=== PATIENT | female | born 1985 | race Two or more races ===

== ENCOUNTER 2017-12-16 18:37 | Emergency (ER) | payer MEDICAID, OTHER ==
[~2017-12-16] VITALS: Ht 170.2 cm; Wt 82.0 kg
[2017-12-17] MEDS ORDERED: AZITHROMYCIN 500 MG TABLET PO SCH (00:45)
[2017-12-17] MEDS ORDERED: CEFTRIAXONE SODIUM 250 MG/VIAL IM ONE (00:45)
[2017-12-17 00:59] LABS: BASOPHILS % 0.2 % (0.0-2.0); EOSINOPHILS % 1.1 % (0.0-5.0); HEMATOCRIT. 36.1 % (36.0-48.0); HEMOGLOBIN. 12.2 g/dL (12.0-16.0); LYMPHOCYTES % 31.9 % (20.0-50.0); MEAN CORPUSCULAR HEMOGLOBIN 30.4 pg (28.0-32.0); MEAN CORPUSCULAR VOLUME 89.8 fL (81.0-99.0); MEAN PLATELET VOLUME 7.3 fl (7.4-10.4); MONOCYTES % 8.2 % (2.0-8.0); NEUTROPHILS % 58.6 % (40.0-76.0); PLATELET 354 x1000/uL (130-400); RED BLOOD CELL COUNT 4.02 mill/uL (4.2-5.4); RED CELL DISTRIBUTION WIDTH 14.1 % (11.6-14.6)
[2017-12-17] MEDS ORDERED: AZITHROMYCIN 500 MG TABLET PO NR (01:00)
[2017-12-17 01:05] LABS: CHLORIDE 108 mEq/L (98-107)
[2017-12-17 01:09] LABS: ETHANOL BLOOD < 10 mg/dL
[2017-12-17 02:29] LABS: CLARITY URINE CLOUDY (CLEAR); COLOR URINE YELLOW (YELLOW); KETONES URINE NEGATIVE (NEGATIVE); LEUKOCYTE ESTERASE URINE 1+ (NEGATIVE); NITRITE URINE NEGATIVE (NEGATIVE); OCCULT BLOOD URINE NEGATIVE (NEGATIVE); PROTEIN URINE NEGATIVE (NEGATIVE); SPECIFIC GRAVITY URINE 1.019 (1.005-1.030)
[2017-12-17 02:37] LABS: *AMPHETAMINES SCREEN URINE NEGATIVE (NEGATIVE); *BARBITURATES SCREEN URINE NEGATIVE (NEGATIVE); CANNABINOID URINE SCREEN NEGATIVE (NEGATIVE); METHADONE URINE SCREEN NEGATIVE (NEGATIVE); OPIATES URINE SCREEN NEGATIVE (NEGATIVE); PHENCYCLIDINE URINE SCREEN NEGATIVE (NEGATIVE)
[2017-12-17 02:38] LABS: *BENZODIAZEPINES SCREEN URINE NEGATIVE (NEGATIVE); *COCAINE SCREEN URINE NEGATIVE (NEGATIVE)
[2017-12-17 06:36] VITALS: BP 101/68
== END 2017-12-17 07:21 | disposition left against medical advice (07) ==
LOC: ER 22:06
DX: N89.8 Other specified noninflammatory disorders of vagina (principal); F22 Delusional disorders; F25.9 Schizoaffective disorder, unspecified; D72.829 Elevated white blood cell count, unspecified
CPT/HCPCS: 36415; 80053; 80305; 80307; 80329; 81003; 81025; 85025; 96372; 99284; G0482; J0696; Z7610